=== PATIENT | female | born 1945 | race Hispanic/Latino ===

== ENCOUNTER 2021-12-16 09:50 | Inpatient (IN) | payer OTHER, MEDICARE ==
[2021-12-16] MEDS ORDERED: Morphine 4 MG/ML VIAL ONE ×2 (10:35→16:22)
[2021-12-16] MEDS ORDERED: Ondansetron PF 4 MG/2 ML Vial ONE (10:35)
[2021-12-16 10:56] LABS: #Lymphocytes 0.9 thou/uL (1.20-3.40); #Monocytes 0.6 thou/uL (0.11-0.59); #Neutrophils 8.3 thou/uL (1.40-6.50); %Basophils 0.4 % (0.0-1.0); %Eosinophils 0.2 % (0.0-10.0); %Lymphocytes 9.4 % (21.0-51.0); %Monocytes 5.9 % (0.0-10.0); %Neutrophils 84.2 % (42.0-75.0); Hemoglobin 12.8 g/dL (12.0-16.0); Mean Corpuscular Hemoglobin 30.5 pg (27.0-31.0); Mean Corpuscular Volume 92.4 fL (78.0-98.0); Mean Platelet Volume 8.8 fL (7.4-10.4); Platelet Count 240 thou/uL (130-400); RBC Distribution Width 11.8 % (11.5-14.5); White Blood Cell (WBC) Count 9.9 thou/uL (4.8-10.8)
[2021-12-16 11:15] LABS: ALT (SGPT) 21 U/L (8-55); AST (SGOT) 16 U/L (5-34); Albumin 3.9 g/dL (3.4-4.8); Alkaline Phosphatase 59 U/L (40-110); Anion Gap 13 mmol/L (10-20); BUN (Urea Nitrogen) 24 mg/dL (9.8-20.1); Bilirubin, Total 0.8 mg/dL (0.2-1.2); Calc. Creatinine Clearance 0 mL/min (70-130); Calcium 8.9 mg/dL (7.8-10.44); Carbon Dioxide 23 mmol/L (23-31); Chloride 108 mmol/L (98-107); Globulin 2.7 g/dL (2.4-3.5); Glucose 142 mg/dL (83-110); Potassium 3.8 mmol/L (3.5-5.1); Protein, Total 6.6 g/dL (5.8-8.1); Sodium 140 mmol/L (136-145)
[2021-12-16] MEDS ORDERED: Fentanyl 100 MCG/2 ML VIAL ONE (13:22)
[2021-12-16] MEDS ORDERED: Dextrose 5% in Water 1,000 ML IV PRN (13:25)
[2021-12-16] MEDS ORDERED: Ondansetron PF 4 MG/2 ML Vial IVP PRN (13:25)
[2021-12-16] MEDS ORDERED: Dextrose 50% Abboject 50 ML SYRINGE SLOW IVP PRN (13:25)
[2021-12-16] MEDS ORDERED: hydrALAZINE 20 MG/ML VIAL SLOW IVP PRN (13:25)
[2021-12-16] MEDS ORDERED: traMADol HCl 50 MG TAB PO PRN ×2 (13:29)
[2021-12-16] MEDS ORDERED: Sodium Chloride 0.9% 1,000 ML IV SCH (13:30)
[2021-12-16] MEDS: Morphine 4 MG/ML VIAL SLOW IVP PRN ×2 (14:31→20:41)
[2021-12-16] MEDS ORDERED: Acetaminophen 500 MG TAB ONE (15:57)
[2021-12-16] MEDS ORDERED: CEFAZOLIN 2 GM in Sodium Chloride 0.9% 100 ML IVPB SCH (17:00)
[2021-12-16 19:54] VITALS: BMI 25.0
[2021-12-16] MEDS: Famotidine 20 MG TAB PO SCH (20:43)
[2021-12-16] MEDS: Senokot S 8.6-50 MG TAB PO SCH (20:43)
[2021-12-16] MEDS: Acetaminophen 500 MG TAB PO SCH (22:00)
[2021-12-17] MEDS: Morphine 4 MG/ML VIAL SLOW IVP PRN ×2 (01:53→05:56)
[2021-12-17] MEDS: Acetaminophen 500 MG TAB PO SCH ×4 (04:11→22:52)
[2021-12-17 06:10] LABS: #Lymphocytes 1.4 thou/uL (1.20-3.40); #Monocytes 0.7 thou/uL (0.11-0.59); #Neutrophils 8.1 thou/uL (1.40-6.50); %Basophils 0.3 % (0.0-1.0); %Eosinophils 0.4 % (0.0-10.0); %Lymphocytes 13.4 % (21.0-51.0); %Monocytes 7.2 % (0.0-10.0); %Neutrophils 78.7 % (42.0-75.0); Hemoglobin 12.3 g/dL (12.0-16.0); Mean Corpuscular HGB CONC 33.2 g/dL (32.0-36.0); Mean Corpuscular Hemoglobin 31.2 pg (27.0-31.0); Mean Corpuscular Volume 93.9 fL (78.0-98.0); Mean Platelet Volume 7.8 fL (7.4-10.4); Platelet Count 238 thou/uL (130-400); Red Blood Cell (RBC) Count 3.95 mill/uL (4.20-5.40); White Blood Cell (WBC) Count 10.2 thou/uL (4.8-10.8)
[2021-12-17 06:38] LABS: Anion Gap 11 mmol/L (10-20); BUN (Urea Nitrogen) 17 mg/dL (9.8-20.1); Calc. Creatinine Clearance 72 mL/min (70-130); Calcium 8.8 mg/dL (7.8-10.44); Carbon Dioxide 25 mmol/L (23-31); Chloride 106 mmol/L (98-107); Glucose 149 mg/dL (83-110); Magnesium 2.1 mg/dL (1.6-2.6); Phosphorus 2.6 mg/dL (2.3-4.7); Potassium 4.1 mmol/L (3.5-5.1); Sodium 138 mmol/L (136-145)
[2021-12-17] MEDS ORDERED: Sodium Phosphate 15 MMOL in Sodium Chloride 0.9% 250 ML 250 ML IVPB SCH (07:30)
[2021-12-17] MEDS: Losartan 25 MG TAB PO SCH (08:06)
[2021-12-17] MEDS: Famotidine 20 MG TAB PO SCH ×2 (08:06→20:15)
[2021-12-17] MEDS: Polyethylene Glycol 3350 17 GM Packet PO SCH (08:07)
[2021-12-17] MEDS: Senokot S 8.6-50 MG TAB PO SCH ×2 (08:07→20:15)
[2021-12-17] MEDS ORDERED: Lidocaine 1% MPF 2 ML VIAL ONE (12:08)
[2021-12-17] MEDS ORDERED: CEFAZOLIN 2 GM VIAL ONE (12:21)
[2021-12-17] MEDS ORDERED: Sodium Chloride 0.9% 0 ML ONE (12:24)
[2021-12-17] MEDS ORDERED: fentaNYL Citrate/PF 100 MCG/2 ML SYRINGE ONE ×2 (12:28→13:34)
[2021-12-17] MEDS ORDERED: PACU-Morphine 4MG/ML VIAL SLOW IVP PRN (12:32)
[2021-12-17] MEDS ORDERED: Meperidine HCl/PF 25 MG/ML VIAL SLOW IVP PRN (12:32)
[2021-12-17] MEDS ORDERED: Promethazine HCl 25 MG/ML VIAL IVPB PRN (12:32)
[2021-12-17] MEDS ORDERED: Dexamethasone 20 MG/5 ML VIAL ONE (12:40)
[2021-12-17] MEDS ORDERED: Ondansetron PF 4 MG/2 ML Vial ONE (12:40)
[2021-12-17] MEDS ORDERED: Lidocaine 1% PF 5 ML VIAL ONE (12:40)
[2021-12-17] MEDS ORDERED: PROPOFOL 200 MG/20 ML VIAL ONE (12:40)
[2021-12-17] MEDS ORDERED: Fentanyl 100 MCG/2 ML VIAL ONE (14:17)
[2021-12-17 16:16] LABS: Bacteria/HPF None Seen HPF (None Seen); Bilirubin Negative (Negative); Blood, Urine Negative (Negative); Clarity Clear (Clear); Glucose, Urine (Dipstick) Normal (Negative); Ketone, Urine 40 mg/dL (Negative); Leukocyte 75 Leu/uL (Negative); Nitrite Negative (Negative); Protein, Urine (Dipstick) Negative (Neg-Trace); RBC/HPF 0-3 HPF (0-3); Specific Gravity, Urine 1.021 (1.002-1.036); Squamous Epithelial 0-3 HPF (0-3); Urobilinogen Normal mg/dL (Less than 2); pH, Urine 5.5 (5.0-9.0)
[2021-12-17] MEDS: CEFAZOLIN 2 GM in Sodium Chloride 0.9% 100 ML IVPB SCH (20:06)
[2021-12-17] MEDS: Cyclobenzaprine 10 MG TAB PO PRN (20:18)
[2021-12-17] MEDS: Simvastatin 10 MG TAB PO SCH (21:27)
[2021-12-18] MEDS ORDERED: Haloperidol Lactate 5 MG/ML VIAL SLOW IVP SCH (03:30)
[2021-12-18] MEDS: Acetaminophen 500 MG TAB PO SCH ×2 (04:19→12:33)
[2021-12-18] MEDS: CEFAZOLIN 2 GM in Sodium Chloride 0.9% 100 ML IVPB SCH (04:19)
[2021-12-18 06:05] LABS: #Lymphocytes 1.2 thou/uL (1.20-3.40); #Monocytes 0.9 thou/uL (0.11-0.59); #Neutrophils 7.5 thou/uL (1.40-6.50); %Basophils 0.2 % (0.0-1.0); %Eosinophils 0.2 % (0.0-10.0); %Lymphocytes 12.1 % (21.0-51.0); %Monocytes 9.4 % (0.0-10.0); Hemoglobin 11.2 g/dL (12.0-16.0); Mean Corpuscular Hemoglobin 30.9 pg (27.0-31.0); Mean Corpuscular Volume 93.6 fL (78.0-98.0); Mean Platelet Volume 8.2 fL (7.4-10.4); Platelet Count 214 thou/uL (130-400); RBC Distribution Width 11.8 % (11.5-14.5); Red Blood Cell (RBC) Count 3.63 mill/uL (4.20-5.40); White Blood Cell (WBC) Count 9.6 thou/uL (4.8-10.8)
[2021-12-18 06:48] LABS: Anion Gap 12 mmol/L (10-20); BUN (Urea Nitrogen) 11 mg/dL (9.8-20.1); Calc. Creatinine Clearance 71 mL/min (70-130); Calcium 9.4 mg/dL (7.8-10.44); Carbon Dioxide 26 mmol/L (23-31); Chloride 107 mmol/L (98-107); Glucose 145 mg/dL (83-110); Magnesium 2.1 mg/dL (1.6-2.6); Phosphorus 1.7 mg/dL (2.3-4.7); Potassium 3.7 mmol/L (3.5-5.1); Sodium 141 mmol/L (136-145)
[2021-12-18] MEDS ORDERED: Potassium Phosphate 30 MMOL in Sodium Chloride 0.9% 250 ML 250 ML IVPB SCH (09:00)
[2021-12-18] MEDS: Polyethylene Glycol 3350 17 GM Packet PO SCH (09:49)
[2021-12-18] MEDS: Losartan 25 MG TAB PO SCH (09:54)
[2021-12-18] MEDS: Senokot S 8.6-50 MG TAB PO SCH ×2 (09:54→20:06)
[2021-12-18] MEDS: Famotidine 20 MG TAB PO SCH ×2 (09:54→20:07)
[2021-12-18] MEDS: Cyclobenzaprine 10 MG TAB PO PRN (12:32)
[2021-12-18] MEDS: Acetaminophen 325 MG TAB PO SCH (18:23)
[2021-12-18] MEDS: Acetaminophen/Codeine 30-300mg Tablet PO SCH (18:23)
[2021-12-18] MEDS: Aspirin 81 mg Enteric Coated Tablet PO SCH (20:06)
[2021-12-18] MEDS: Melatonin 3 MG TAB PO SCH (20:06)
[2021-12-18] MEDS: Simvastatin 10 MG TAB PO SCH (20:07)
[2021-12-19] MEDS: Acetaminophen/Codeine 30-300mg Tablet PO SCH ×5 (00:24→20:37)
[2021-12-19] MEDS: Acetaminophen 325 MG TAB PO SCH ×5 (00:24→20:38)
[2021-12-19] MEDS ORDERED: Sodium Chloride 0.9% 1,000 ML IV SCH (06:00)
[2021-12-19 06:28] LABS: #Eosinphils 0.4 thou/uL (0.0-0.7); #Lymphocytes 1.7 thou/uL (1.20-3.40); #Monocytes 0.7 thou/uL (0.11-0.59); #Neutrophils 4.5 thou/uL (1.40-6.50); %Basophils 0.7 % (0.0-1.0); %Eosinophils 5.1 % (0.0-10.0); %Lymphocytes 22.7 % (21.0-51.0); %Monocytes 9.6 % (0.0-10.0); %Neutrophils 61.9 % (42.0-75.0); Hemoglobin 9.8 g/dL (12.0-16.0); Mean Corpuscular HGB CONC 32.8 g/dL (32.0-36.0); Mean Corpuscular Volume 94.4 fL (78.0-98.0); Mean Platelet Volume 8.6 fL (7.4-10.4); Platelet Count 193 thou/uL (130-400); RBC Distribution Width 12.1 % (11.5-14.5); Red Blood Cell (RBC) Count 3.15 mill/uL (4.20-5.40); White Blood Cell (WBC) Count 7.3 thou/uL (4.8-10.8)
[2021-12-19 07:07] LABS: Anion Gap 10 mmol/L (10-20); BUN (Urea Nitrogen) 18 mg/dL (9.8-20.1); Calc. Creatinine Clearance 82 mL/min (70-130); Calcium 8.4 mg/dL (7.8-10.44); Carbon Dioxide 27 mmol/L (23-31); Chloride 107 mmol/L (98-107); Glucose 124 mg/dL (83-110); Magnesium 2.1 mg/dL (1.6-2.6); Phosphorus 2.7 mg/dL (2.3-4.7); Potassium 3.9 mmol/L (3.5-5.1); Sodium 140 mmol/L (136-145)
[2021-12-19] MEDS ORDERED: PHOS-NAK 1 PKT PACK PO SCH (08:15)
[2021-12-19] MEDS: Senokot S 8.6-50 MG TAB PO SCH ×3 (09:00→21:43)
[2021-12-19] MEDS: Famotidine 20 MG TAB PO SCH ×2 (09:00→20:34)
[2021-12-19] MEDS: Aspirin 81 mg Enteric Coated Tablet PO SCH ×2 (09:00→20:34)
[2021-12-19] MEDS: Losartan 25 MG TAB PO SCH (09:00)
[2021-12-19] MEDS: Polyethylene Glycol 3350 17 GM Packet PO SCH (09:01)
[2021-12-19] MEDS: Melatonin 3 MG TAB PO SCH (20:34)
[2021-12-19] MEDS: Simvastatin 10 MG TAB PO SCH ×2 (20:35→21:43)
[2021-12-20] MEDS: Acetaminophen 325 MG TAB PO SCH ×4 (06:05→19:50)
[2021-12-20] MEDS: Acetaminophen/Codeine 30-300mg Tablet PO SCH ×4 (06:06→23:54)
[2021-12-20 06:31] LABS: #Eosinphils 0.4 thou/uL (0.0-0.7); #Lymphocytes 2.7 thou/uL (1.20-3.40); #Monocytes 0.7 thou/uL (0.11-0.59); #Neutrophils 3.3 thou/uL (1.40-6.50); %Basophils 0.5 % (0.0-1.0); %Lymphocytes 38.6 % (21.0-51.0); %Monocytes 9.3 % (0.0-10.0); %Neutrophils 46.6 % (42.0-75.0); Hemoglobin 9.6 g/dL (12.0-16.0); Mean Corpuscular HGB CONC 33.5 g/dL (32.0-36.0); Mean Corpuscular Hemoglobin 31.9 pg (27.0-31.0); Mean Corpuscular Volume 95.3 fL (78.0-98.0); Mean Platelet Volume 8.2 fL (7.4-10.4); Platelet Count 220 thou/uL (130-400); RBC Distribution Width 12.1 % (11.5-14.5); Red Blood Cell (RBC) Count 3.01 mill/uL (4.20-5.40); White Blood Cell (WBC) Count 7.1 thou/uL (4.8-10.8)
[2021-12-20 07:06] LABS: Anion Gap 9 mmol/L (10-20); BUN (Urea Nitrogen) 14 mg/dL (9.8-20.1); Calc. Creatinine Clearance 88 mL/min (70-130); Calcium 8.5 mg/dL (7.8-10.44); Carbon Dioxide 26 mmol/L (23-31); Chloride 108 mmol/L (98-107); Glucose 101 mg/dL (83-110); Magnesium 2.1 mg/dL (1.6-2.6); Phosphorus 3.1 mg/dL (2.3-4.7); Sodium 139 mmol/L (136-145)
[2021-12-20] MEDS ORDERED: PHOS-NAK 1 PKT PACK PO SCH (08:15)
[2021-12-20] MEDS: Aspirin 81 mg Enteric Coated Tablet PO SCH ×2 (09:28→20:01)
[2021-12-20] MEDS: Losartan 25 MG TAB PO SCH (09:28)
[2021-12-20] MEDS: Polyethylene Glycol 3350 17 GM Packet PO SCH (09:28)
[2021-12-20] MEDS: Famotidine 20 MG TAB PO SCH ×2 (09:28→20:01)
[2021-12-20] MEDS: Senokot S 8.6-50 MG TAB PO SCH ×2 (09:28→20:44)
[2021-12-20] MEDS: Cyclobenzaprine 10 MG TAB PO PRN (19:47)
[2021-12-20] MEDS: Melatonin 3 MG TAB PO SCH (20:01)
[2021-12-20] MEDS: Simvastatin 10 MG TAB PO SCH (20:01)
[2021-12-21] MEDS: Acetaminophen/Codeine 30-300mg Tablet PO SCH ×3 (06:03→18:05)
[2021-12-21] MEDS: Acetaminophen 325 MG TAB PO SCH ×3 (06:03→18:05)
[2021-12-21] MEDS: Polyethylene Glycol 3350 17 GM Packet PO SCH (07:53)
[2021-12-21] MEDS: Senokot S 8.6-50 MG TAB PO SCH ×2 (07:53→21:00)
[2021-12-21] MEDS: Aspirin 81 mg Enteric Coated Tablet PO SCH ×2 (07:53→21:03)
[2021-12-21] MEDS: Losartan 25 MG TAB PO SCH (07:53)
[2021-12-21] MEDS: Famotidine 20 MG TAB PO SCH (07:53)
[2021-12-21] MEDS: Ibuprofen 200 MG TAB PO SCH ×2 (14:40→21:01)
[2021-12-21] MEDS: Melatonin 3 MG TAB PO SCH (21:03)
[2021-12-21] MEDS: Simvastatin 10 MG TAB PO SCH (21:04)
[2021-12-22] MEDS: Acetaminophen 325 MG TAB PO SCH ×3 (00:10→12:23)
[2021-12-22] MEDS: Acetaminophen/Codeine 30-300mg Tablet PO SCH ×4 (00:42→12:23)
[2021-12-22] MEDS: Ibuprofen 200 MG TAB PO SCH ×2 (06:57→13:20)
[2021-12-22] MEDS: Aspirin 81 mg Enteric Coated Tablet PO SCH (08:29)
[2021-12-22] MEDS: Losartan 25 MG TAB PO SCH (08:29)
[2021-12-22] MEDS: Cyclobenzaprine 10 MG TAB PO PRN (08:30)
[2021-12-22] MEDS: Senokot S 8.6-50 MG TAB PO SCH (08:30)
[2021-12-22] MEDS: Polyethylene Glycol 3350 17 GM Packet PO SCH (08:31)
[2021-12-22] MEDS ORDERED: Amlodipine 5 MG TAB PO SCH (09:00)
[2021-12-22 15:35] VITALS: BP 162/68; TEMP 97.8
== END 2021-12-22 17:00 | DRG 481 ==
LOC: ERS 09:50 → ERHOLD 12:05 → T4-B 19:44
PROVIDERS: ADMIT Surgery; ATTEND Surgery
PROC: 0QS606Z Reposition Right Upper Femur with Intramedullary Internal Fixation Device, Open Approach (ICD-10-PCS; principal; 2021-12-17)
DX: S72.21XA Displaced subtrochanteric fracture of right femur, initial encounter for closed fracture (principal); F02.81 Dementia in other diseases classified elsewhere, unspecified severity, with behavioral disturbance; Z20.822 Contact with and (suspected) exposure to COVID-19; I10 Essential (primary) hypertension; E78.5 Hyperlipidemia, unspecified; G30.9 Alzheimer's disease, unspecified; F32.A Depression, unspecified; E78.00 Pure hypercholesterolemia, unspecified; W17.89XA Other fall from one level to another, initial encounter; Y92.89 Other specified places as the place of occurrence of the external cause; Z78.1 Physical restraint status; Z28.21 Immunization not carried out because of patient refusal; Z79.899 Other long term (current) drug therapy; Z98.890 Other specified postprocedural states
CPT/HCPCS: 36415; 70450; 71045; 72125; 72170; 76000; 80048; 80053; 81003; 81015; 83735; 84100; 85025; 86850; 86900; 86901; 93005; 96374; 96375; C1713; G0390; J0690; J1100; J1630; J2270; J2405; J2704; J3010; J3490; J7050; U0003; U0005